=== PATIENT | female | born 1950 | race Caucasian/White ===

== ENCOUNTER → 2016-11-13 | Outpatient (CLI) | payer OTHER ==
[~2016-11-13] MED LIST: ADVIN10/60 INH; ASPI81TA28 PO; CHOL100010 PO; CLR10 PO; FLNIN/ NAE; LSN20 PO; OMEP20TA14 PO
[2016-11-13 13:35] LABS: ALT/SGPT 24 U/L (12-78); BLOOD UREA NITROGEN 12 mg/dl (7-18); BUN/CREATININE RATIO 12.8 (10-20); CALCIUM 9.2 mg/dl (8.5-10.1); CARBON DIOXIDE 26 mmol/L (21-32); CHLORIDE 107 mmol/L (98-107); CHOLESTEROL 232 mg/dl (0-200); CREATININE 0.94 mg/dl (0.60-1.20); GLUCOSE 98 mg/dl (70-99); POTASSIUM 4.2 mmol/L (3.5-5.1); SODIUM 140 mmol/L (136-145); TRIGLYCERIDES 91 mg/dl (0-150); VERY LOW DENSITY LIPOPROT CALC 18 mg/dl
[2016-11-13 13:38] LABS: ALB/GLOB RATIO 0.9 (0.9-2); ALKALINE PHOSPHATASE 85 U/L (45-117); AST/SGOT 16 U/L (15-37); CHOLESTEROL/HDL RATIO 3.3; HDL CHOLESTEROL 70 mg/dl; LDL CHOLESTEROL CALCULATED 144 mg/dl
== END | disposition home or self-care (01) ==
LOC: C.LABBC 08:25
PROVIDERS: ATTEND Family Medicine
DX: I10 Essential (primary) hypertension (principal); E78.00 Pure hypercholesterolemia, unspecified; E55.9 Vitamin D deficiency, unspecified

== ENCOUNTER → 2017-03-18 | Outpatient (CLI) | payer OTHER ==
--- NOTE | 2017-03-18 13:54 | MAMMOGRAPHY REPORT ---
BILATERAL DIGITAL SCREENING MAMMOGRAM WITH CAD: 03/18/2017 CLINICAL HISTORY: Routine screening. TECHNIQUE: Current study was also evaluated with a Computer Aided Detection (CAD) system. Bilateral CC and MLO views were obtained. COMPARISON: Comparison is made to exams dated: 03/16/2016 mammogram, 03/11/2015 mammogram, 03/07/2014 ana mogram, 02/26/2013 mammogram, 02/21/2012 mammogram, and 02/16/2011 mammogram - [facility]. BREAST COMPOSITION: There are scattered areas of fibroglandular density in both breasts. FINDINGS: No suspicious masses, calcifications, or areas of architectural distortion are noted in ei ther breast. There has been no significant interval change compared to prior exams. IMPRESSION: ACR BI-RADS CATEGORY 1: NEGATIVE There is no mammographic evidence of malignancy. A 1 year screening mammogram is recommended. The pa tient will receive written notification of the results. Approximately 10% of breast cancers are not detected with mammography. A negative mammographic report should not delay biopsy if a clinically suggestive mass is present. No Cantor M.D. ah/:03/18/2017 07:49:22 Substation Operator Apprentice: Payam Liu RT(R)(M), [facility] letter sent: Normal 1/2 BI-RADS Code: ACR BI-RADS Category 1: Negative
== END | disposition home or self-care (01) ==
LOC: C.MAMM 07:31
PROVIDERS: ATTEND Family Medicine
DX: Z12.31 Encounter for screening mammogram for malignant neoplasm of breast (principal)

== ENCOUNTER → 2017-11-08 | Outpatient (CLI) | payer OTHER ==
[2017-11-08 10:55] LABS: BASO % 0.3 %; BASO ABS # 0.02 K/uL (0-0.2); EOS % 2.6 %; EOS ABS # 0.16 K/uL (0-0.5); HEMATOCRIT 41.7 % (37-47); HEMOGLOBIN 14.3 g/dL (12.0-16.0); IG# 0.01 K/uL (0.00-0.02); LYMPH % 33.4 %; LYMPH ABS # 2.07 K/uL (1.2-3.4); MEAN CELL VOLUME 84.9 fL (80-100); MEAN CORPUSCULAR HEMOGLOBIN 29.1 pg (25-34); MEAN CORPUSCULAR HGB CONC 34.3 g/dl (32-36); MEAN PLATELET VOLUME 10.3 fL (7.4-10.4); MONO % 5.5 %; MONO ABS # 0.34 K/uL (0.11-0.59); PLATELET COUNT 302 K/uL (130-400); RED CELL DISTRIBUTION WIDTH CV 13.5 % (11.5-14.5); RED CELL DISTRIBUTION WIDTH SD 41.5 fL (36.4-46.3)
[2017-11-08 11:28] LABS: HEMOGLOBIN A1C 5.5 % (4.5-5.6)
[2017-11-08 14:03] LABS: ALBUMIN 3.8 gm/dl (3.4-5.0); BLOOD UREA NITROGEN 13 mg/dl (7-18); CALCIUM 9.4 mg/dl (8.5-10.1); CARBON DIOXIDE 26 mmol/L (21-32); CHOLESTEROL 230 mg/dl (0-200); CREATININE 0.84 mg/dl (0.60-1.20); GLUCOSE 94 mg/dl (70-99); POTASSIUM 3.7 mmol/L (3.5-5.1); SODIUM 137 mmol/L (136-145)
[2017-11-08 14:07] LABS: ALKALINE PHOSPHATASE 82 U/L (45-117); ALT/SGPT 24 U/L (12-78); AST/SGOT 16 U/L (15-37); LDL CHOLESTEROL CALCULATED 155 mg/dl; TOTAL PROTEIN 7.8 gm/dl (6.4-8.2)
== END | disposition home or self-care (01) ==
LOC: C.LABBC 09:04
PROVIDERS: ATTEND Physician Assistant Medical
DX: I10 Essential (primary) hypertension (principal); E78.00 Pure hypercholesterolemia, unspecified; E55.9 Vitamin D deficiency, unspecified; R73.03 Prediabetes

== ENCOUNTER → 2017-11-21 | Outpatient (CLI) | payer OTHER | END | disposition home or self-care (01) | LOC: C.MAMM 12:33 | PROVIDERS: ATTEND Physician Assistant Medical | DX: Z13.820 Encounter for screening for osteoporosis (principal) ==

== ENCOUNTER 2023-09-04 15:55 | Observation (INO) ==
--- NOTE | 2023-09-04 16:02 | ED Triage Note ---
Date of Service September 04, 2023 History of Present Illness This patient was briefly evaluated while in triage. An abbreviated physical exam was performed. This patient is a 73-year-old Female who presents to the ED for evaluation lipids, HTN, DM, bipolar was out walking dog with friends, and had an acute visual disturbance in the left eye "arc of bright light in lateral visual field" lasted 20 minutes noticed smaller defect in right eye no headache hx of cataract extraction, no hx of glaucoma Physical Exam GENERAL: NAD ENT: PERRLA, EOMI CARDIOVASCULAR: RRR RESPIRATORY: CTA Initial orders for labs and / or imaging were placed and patient was placed in the waiting area until a bed is available. Please see further documentation for the full ED course.
[2023-09-04 16:35] LABS: Basophils # (auto) 0.04 K/uL (0.00-0.20); Basophils % (auto) 0.6 %; Eosinophils # (auto) 0.23 K/uL (0.00-0.50); Eosinophils % (auto) 3.4 %; Hematocrit (blood only) 43.2 % (37.0-47.0); Hemoglobin 14.5 g/dl (12.0-16.0); Immature Granulocytes # (auto) 0.01 K/uL (0.01-0.20); Immature Granulocytes % (auto) 0.1 %; Lymphocytes # (auto) 2.66 K/uL (1.20-3.40); Lymphocytes % (auto) 39.3 %; Mean Corpuscular Hemoglobin 28.5 pg (25.0-34.0); Mean Corpuscular Hgb Conc 33.6 g/dL (32.0-36.0); Mean Platelet Volume 10.9 fL (9.4-12.4); Monocytes # (auto) 0.31 K/uL (0.11-0.59); Monocytes % (auto) 4.6 %; Neutrophils # (auto) 3.51 K/uL (1.40-6.50); Platelet Count 305 K/uL (130-400); RDW Coefficient of Variation 12.8 % (11.5-14.5); RDW Standard Deviation 39.7 fL (36.4-46.3); Red Blood Count 5.08 M/uL (4.20-5.40); White Blood Count 6.76 K/ul (4.8-10.8)
[2023-09-04 16:49] LABS: Albumin Globulin Ratio 1.3 (0.9-2); Albumin Level 4.4 gm/dl (3.4-5.0); BUN Creatinine Ratio 20.8 (10-20); Bilirubin,Total 0.4 mg/dl (0.2-1.0); Calcium 9.8 mg/dl (8.6-10.3); Creatinine Clr Calc Pharmacy 66.5 ml/min; Est GFR (Non-African American) 77.7 ml/min; Globulin 3.3 gm/dl (2.5-4.0); Potassium 3.3 mmol/L (3.5-5.1); Total Protein 7.7 gm/dl (6.0-8.3)
--- NOTE | 2023-09-04 16:49 | Emergency Department Note ---
Impression & Plan Transient vision disturbance of both eyes ED Provider Note Provider: Andrews Roque MD DATE OF SERVICE: 09/04/2023 CHIEF COMPLAINT: Visual disturbance HISTORY OF PRESENT ILLNESS: Patient is a 73-year-old female history of GERD, hypertension, hyperlipidemia, bipolar disorder presenting here today stating around 3 PM she had about 10 to 15-minute episode where she had some shimmering lines in the left visual jay of both eyes. Denies pain. Denies trauma. Denies syncope. Denies numbness or tingling or weakness otherwise. Denies speech issues. No history of similar. Denies any headache or history of migraines. Denies history of similar. Has had cataract surgery in the past but denies any similar issues to this. States it was a zigzag type line left lateral visual jay of both eyes. Stronger in the left but present on the right as well she reports. Has resolved. Came here for evaluation this evening. PAST MEDICAL HISTORY: As noted above MEDICATIONS: Reviewed home medications FMH: Mother with history of stroke SOCIAL HISTORY: PHYSICAL EXAM: GENERAL: alert and oriented in no acute distress on stretcher Head: normocephalic and atraumatic EYES: No injection, discharge or icterus. PERRL, EOMI. NECK: Trachea midline. Supple. ENT: Mucous membranes pink and moist. LUNGS: Airway patent. No retractions. Breath sounds clear with good air entry bilaterally. HEART: Regular rate and rhythm. No chest wall tenderness SKIN: Acyanotic, warm, dry, without rashes EXTREMITIES: Without swelling, tenderness or deformity NEUROLOGICAL: No focal deficits. No aphasia. No facial droop or slurred speech. Normal strength and tone in the extremities. Sensation to gross touch normal. Ambulatory. EK bpm normal sinus rhythm. No PVC or PAC. No acute ST segment elevation or depression with QTc of 404 Patient's laboratory studies and imaging reviewed. Differential includes Conjunctivitis, trauma, corneal abrasion, hyphema, glaucoma, iritis, corneal ulcer, dendrite, CRAO, CRVO, vitreous detachment, retinal detachment, stroke, seizure, complex migraine, SLICE CUTTING MACHINE OPERATOR infection, as well as other pathologies. IMPRESSION/MEDICAL DECISION MAKING: Bilateral nature and now resolution does not seem to get of a primary ophthalmologic etiology. Now resolved. No other associate neurological symptoms. No trauma. No acute visual issues at this time. Zigzag nature without flashing or significant pain bilaterally does not seem consistent again with glaucoma, iritis, eye infection, or retinal detachment. Back at baseline now. Basic blood work and EKG here without acute findings. Discussed with the patient given this odd finding that could potentially localize to the right posterior occipital region did complete an MRI of the brain without finding per the radiologist report. Discussed with her. This could possibly represent a brain TIA but feel this is less likely. Unclear exact etiology. At this time she is back at baseline. Discussed with the patient. Discussed we could observe her for this but she is back at baseline now. In shared decision-making she would prefer to go home which I do not feel is unreasonable. Has not tolerated statins in the past but will start on a low-dose aspirin pending outpatient follow-up. Discussed being in contact with her primary doctor as well as environmental engineering manager group closely. However, just prior to DC had reccurance of symptoms now more involving R visual jay. Upon reassessment symptoms resolving lasting ~10 minutes. Given recurrence discussed observation over night. DIAGNOSIS: Transient visual disturbance DISPOSITION: Initially thoughts for discharge but then with recurrence of visual symptoms discussed with her and hospitalist contacted for observation. Past Med/Surg History Medical History Allergic rhinitis, unspecified Anxiety Asthma Bipolar disorder GERD (gastroesophageal reflux disease) History of colon polyps Hyperlipidemia Hypertension Macular degeneration Osteoarthritis Vitamin D insufficiency Surgical History History of cataract surgery History of colonoscopy History of D&C History of tooth extraction Family History Daughter Breast cancer Mother Graves disease Hypertension Stroke Father Prostate cancer Dyslipidemia Heart disease Myocardial infarction Hypertension Grandfather (Maternal) Alcoholic cirrhosis Grandfather (Paternal) Heart disease Lung cancer Grandmother (Maternal) Ischemic stroke Other No family history of adverse response to anesthesia Denies family history of Ovarian cancer Diabetes Colorectal cancer Social History Smoking Status: Never smoker Second Hand Exposure: No ( A CHILD); Do You Dip or Chew Tobacco: No; Hx Alcohol Use: No Hx Substance Use: No Preferred Language: Maori Communication Ability: Effective Visual Impairment: Limited Hearing Ability: Normal Utility Mechanic Required: No Beliefs That Will Affect Care: None marital status: Current Living Situation: Spouse Current Living Situation Comment: 1 dog current occupational status: employed current occupation: [employer], [employer], and [employer] How many Children do You have: 1 Feels Safe at Home: Yes Childhood Exposure to Second-Hand Smoke: Yes caffeine: Yes Dental Care, Regularly: Yes Physical Activity Frequency: Daily Seatbelt Use: always Sunscreen Use: Yes Assistive Devices: Glasses Allergies Allergies Allergy/AdvReac Type Severity Reaction Status Date / Time atorvastatin Allergy Intermediate Confusion Verified 06/30/23 13:17 nickel Allergy Mild ITCHING Verified 06/30/23 13:17 Penicillins Allergy Mild RASH Verified 06/30/23 13:17 cyclobenzaprine AdvReac Mild EMOTION Verified 06/30/23 13:17 UPSET, CRYING W/O REASON rosuvastatin AdvReac Mild Confusion Verified 06/30/23 13:17 crestor AdvReac Mild Fatigued Uncoded 06/30/23 13:34 Home Meds Home Medications Medication Instructions Recorded Confirmed fluticasone propionate 50 1 sprays intranasal QAM 03/31/20 09/04/23 mcg/actuation nasal spray,suspension (Flonase Allergy Relief) cholecalciferol (vitamin D3) 50 50 mcg PO QPM 02/06/21 09/04/23 mcg (2,000 unit) capsule amlodipine 5 mg tablet 5 mg PO QPM 09/04/23 09/04/23 Previous Rx's Medication Instructions Recorded loratadine 10 mg tablet (Claritin) 10 mg PO DAILY #30 tabs 09/18/19 omeprazole magnesium 20 mg 20 mg PO DAILY #30 tabs 09/18/19 tablet,delayed release (Prilosec OTC) lisinopril 20 mg tablet 20 mg PO BID #180 tabs 06/30/23 Results & Data (ED) Vital Signs Vital Signs - 24 hr 09/04/23 15:58 09/04/23 18:36 09/04/23 20:22 Temperature 36.6 C Temperature Source Temporal Artery Scan Pulse Rate 90 Pulse Rate [Right Radial] 76 60 Pulse Rhythm [Right Radial] Regular Pulse Strength [Right Radial] Normal Respiratory Rate 18 18 18 Respiratory Effort / Characteristics Non-Labored Non-Labored Spontaneous Respiratory Depth Normal Normal Respiratory Pattern Regular Regular Blood Pressure 167/80 H Blood Pressure [Right Arm] 159/98 H 121/58 L Blood Pressure Mean 109 Blood Pressure Mean [Right Arm] 118 79 Pulse Oximetry 99 98 92 Oxygen Delivery Method Room Air Room Air Room Air Sepsis Recent Fever Within 48 Hours No Sepsis New/Unexplained Change in Mental Status N/A Sepsis Action Taken by Nursing No Action Required Laboratory Data 09/04/23 16:15 09/04/23 16:15 Lab Results 09/04/23 Range/Units 16:15 WBC 6.76 (4.8-10.8) K/ul RBC 5.08 (4.20-5.40) M/uL Hgb 14.5 (12.0-16.0) g/dl Hct 43.2 (37.0-47.0) % MCV 85.0 (80.0-100.0) fL MCH 28.5 (25.0-34.0) pg MCHC 33.6 (32.0-36.0) g/dL RDW Std Deviation 39.7 (36.4-46.3) fL RDW Coeff of Olvin 12.8 (11.5-14.5) % Plt Count 305 (130-400) K/uL MPV 10.9 (9.4-12.4) fL Immature Gran % (Auto) 0.1 % Neut % (Auto) 52.0 % Lymph % (Auto) 39.3 % [place] % (Auto) 4.6 % Eos % (Auto) 3.4 % Baso % (Auto) 0.6 % Neut # (Auto) 3.51 (1.40-6.50) K/uL Lymph # (Auto) 2.66 (1.20-3.40) K/uL [place] # (Auto) 0.31 (0.11-0.59) K/uL Eos # (Auto) 0.23 (0.00-0.50) K/uL Baso # (Auto) 0.04 (0.00-0.20) K/uL Immature Gran # (Auto) 0.01 (0.01-0.20) K/uL Sodium 140 (136-145) mmol/L Potassium 3.3 L (3.5-5.1) mmol/L Chloride 105 (98-107) mmol/L Carbon Dioxide 29 (21-32) mmol/L Anion Gap 6 (3-11) BUN 16 (6-23) mg/dl Creatinine 0.77 (0.6-1.2) mg/dl Est Cr Clr Drug Dosing 66.5 ml/min Est GFR ( Amer) 90.0 ml/min Est GFR (Non-Af Amer) 77.7 ml/min BUN/Creatinine Ratio 20.8 H (10-20) Glucose 100 H (70-99(Fasting)) mg/dl Calcium 9.8 (8.6-10.3) mg/dl Magnesium 2.0 (1.7-2.4) mg/dl Total Bilirubin 0.4 (0.2-1.0) mg/dl AST 17 (13-39) U/L ALT 16 (7-52) U/L Alkaline Phosphatase 81 (34-104) U/L Total Protein 7.7 (6.0-8.3) gm/dl Albumin 4.4 (3.4-5.0) gm/dl Globulin 3.3 (2.5-4.0) gm/dl Albumin/Globulin Ratio 1.3 (0.9-2) Administered Medications Discontinued Medications Aspirin (Aspirin 81 Mg Chew) 81 mg PO NOW STA Stop: 09/04/23 18:29 Last Admin: 09/04/23 18:36 Dose: 81 mg Documented By: CHRIS Ioversol (Optiray 320 125ml) 118 ml IV ONCE ONE Stop: 09/04/23 19:51 Last Admin: 09/04/23 19:52 Dose: 118 ml Documented By: SAVANNA Potassium Chloride (Potassium Chloride Crtab 20 Meq Tabcr) 20 meq PO ONE ONE Stop: 09/04/23 20:35 Last Admin: 09/04/23 21:44 Dose: 20 meq Documented By: ANGELA Imaging Data Radiologist's Impression: Brain MRI 09/04/23 16:59 MR brain wo con CLINICAL HISTORY: Left visual field changes TECHNIQUE: Multiplanar and multisequence MR images of the brain were obtained without intravenous contrast. Comparison: None available at the time of this dictation. FINDINGS: No abnormal restricted diffusion is identified. Foci of T2 and FLAIR hyperintensity are noted in the paraventricular areas consistent with chronic small vessel ischemic disease. The ventricular system is normal in appearance. No mass is seen. There is no mass effect or midline shift. There is no evidence of acute intraparenchymal hemorrhage. No extra axial fluid collections are seen. The corpus callosum, pituitary gland, and cerebellar tonsils appear grossly unremarkable. Flow voids of the major intracranial arterial vessels are identified. The imaged portions of the paranasal sinuses, mastoid air cells, and orbits are unremarkable. IMPRESSION: No acute abnormality and in particular no evidence of acute infarct. ACT 112: Negative or not required by law. Electronically signed by: Santi Pascual M.D. 09/04/2023 6:01 PM Head CTA 09/04/23 19:23 Exam(s): CTA HEAD With Contrast IV Amt: 117 ml optiray 320 EXAM: CT Angiography Head With Intravenous Contrast CLINICAL HISTORY: Reason for exam: visual changes. TECHNIQUE: Axial computed tomographic angiography images of the head with intravenous contrast. CTDI is 12.21 mGy and DLP is 430.8 mGy-cm. Automated exposure control was utilized for the study. A dose lowering technique was utilized adhering to the principles of ALARA. MIP reconstructed images were created and reviewed. CONTRAST: Patient received 117 ml optiray 320 of IV contrast COMPARISON: None. FINDINGS: Right internal carotid artery: Minimal atherosclerotic disease involving the cavernous portion of the right internal carotid artery with no stenosis. No aneurysm. Right anterior cerebral artery: Unremarkable. No occlusion or significant stenosis. No aneurysm. Right middle cerebral artery: Unremarkable. No occlusion or significant stenosis. No aneurysm. Right posterior cerebral artery: Unremarkable. No occlusion or significant stenosis. No aneurysm. Right vertebral artery: Unremarkable as visualized. Left internal carotid artery: Minimal atherosclerotic disease involving the cavernous portion of the left internal carotid artery with no stenosis. No aneurysm. Left anterior cerebral artery: Unremarkable. No occlusion or significant stenosis. No aneurysm. Left middle cerebral artery: Unremarkable. No occlusion or significant stenosis. No aneurysm. Left posterior cerebral artery: Unremarkable. No occlusion or significant stenosis. No aneurysm. Left vertebral artery: Unremarkable as visualized. Basilar artery: Unremarkable. No occlusion or significant stenosis. No aneurysm. IMPRESSION: No stenosis, occlusion or aneurysmal dilatation involving the quechan of [place]. Electronically signed by: Isabela Novoa MD 09/04/23 20:38 PM Neck CTA 09/04/23 19:23 Exam(s): CTA NECK With Contrast IV Amt: 117 ml optiray 320 EXAM: CT Angiography Neck With Intravenous Contrast CLINICAL HISTORY: Reason for exam: visual changes. TECHNIQUE: Routine carotid CT angiography protocol was performed with intravenous contrast. NASCET criteria using the distal ICAs for comparison were used for evaluation of stenoses. CTDI is 12.21 mGy and DLP is 430.8 mGy-cm. Automated exposure control was utilized for the study. A dose lowering technique was utilized adhering to the principles of ALARA. MIP reconstructed images were created and reviewed. CONTRAST: Patient received 117 ml optiray 320 of IV contrast COMPARISON: None. FINDINGS: VASCULATURE: Right common carotid artery: Unremarkable. No occlusion or significant stenosis. No dissection. Right internal carotid artery: Unremarkable. Extracranial segment is patent with no occlusion or significant stenosis. No dissection. Right external carotid artery: Unremarkable. No occlusion. Right vertebral artery: Unremarkable. No occlusion or significant stenosis. No dissection. Left common carotid artery: Unremarkable. No occlusion or significant stenosis. No dissection. Left internal carotid artery: Unremarkable. Extracranial segment is patent with no occlusion or significant stenosis. No dissection. Left external carotid artery: Unremarkable. No occlusion. Left vertebral artery: Unremarkable. No occlusion or significant stenosis. No dissection. Aorta: Mild atherosclerotic disease of aorta with no aneurysm or dissection. Mild atherosclerotic disease with the great vessels. NECK: Bones/joints: Unremarkable. No acute fracture. Soft tissues: Unremarkable. Thyroid: Multiple hypoattenuating nodules seen within the right thyroid lobe, largest measuring 2 cm. Lung apices: Clear. CAROTID STENOSIS REFERENCE USING NASCET CRITERIA: % ICA stenosis = (1 - narrowest ICA diameter/diameter of distal cervical ICA) x 100. Mild - <50% stenosis. Moderate - 50-69% stenosis. Severe - 70-94% stenosis. Near occlusion - 95-99% stenosis. Occluded - 100% stenosis. IMPRESSION: No stenosis, occlusion or dissection involving the bilateral carotid and vertebral arteries. Electronically signed by: Isabela Novoa MD 09/04/23 20:36 PM Discharge Plan Visit Data Chief Complaint: Visual Disturbance Stated Complaint: VISUAL DISTURBANCE ED Provider: Andrews Roque Discharge Problem: Transient vision disturbance of both eyes Patient Disposition: Admitted As Inpatient Condition: Good Discharge Instructions Interventions: ED Discharge Assessment Last Done: 09/04/23 22:09
--- NOTE | 2023-09-04 18:02 | Magnetic Resonance Report ---
MR brain wo con CLINICAL HISTORY: Left visual field changes TECHNIQUE: Multiplanar and multisequence MR images of the brain were obtained without intravenous con trast. Comparison: None available at the time of this dictation. FINDINGS: No abnormal restricted diffusion is identified. Foci of T2 and FLAIR hyperintensity are noted in the paraventricular areas consistent with chronic small vessel ischemic disease. The ventricular system i s normal in appearance. No mass is seen. There is no mass effect or midline shift. There is no eviden ce of acute intraparenchymal hemorrhage. No extra axial fluid collections are seen. The corpus callos um, pituitary gland, and cerebellar tonsils appear grossly unremarkable. Flow voids of the major intracranial arterial vessels are identified. The imaged portions of the para nasal sinuses, mastoid air cells, and orbits are unremarkable. IMPRESSION: No acute abnormality and in particular no evidence of acute infarct. ACT 112: Negative or not required by law. Electronically signed by: Santi Pascual M.D. 09/04/2023 6:01 PM
[2023-09-04] MEDS ORDERED: ASPIRIN 81 MG CHEW PO STA (18:28)
[2023-09-04] MEDS ORDERED: OPTIRAY 320 125ml IV ONE (19:50)
--- NOTE | 2023-09-04 20:13 | History & Physical Report ---
Date of Service September 04, 2023 Assessment & Plan (1) Transient vision disturbance of both eyes: Plan: 2 episodes of transient b/l visual disturbances Episodes last 10 to 15 minutes, and she characterizes them as "wavy vision" like a kaleidoscope, or rainbow No slurred speech, facial droop, ocular pain, BYERS, dizziness, lightheadedness, ambulatory dysfunction, one-sided deficits No prior history of episodes like this one MRI brain revealed NAF CTA neck revealed no stenosis, occlusion, or dissection involving the bilateral carotid and vertebral arteries CT head revealed no stenosis, occlusion, or aneurysms in the [place] of [place] Last A1c 5.7% on 08/19/23 Patient passed dysphagia screen in the ED, and is okay to eat Clinically, suspect ocular migraines; recommend outpatient follow-up with PCP Juliocesar FARIAS, BMP (2) Hyperlipidemia: Plan: Patient is no longer taking pravastatin Last lipid panel on 08/19/2023 revealed cholesterol 232, LDL 57, VLDL 21, HDL 54 No need to repeat lipid panel at this time (3) Hypertension: Plan: Hold amlodipine Continue lisinopril (4) Bipolar disorder: Plan: Patient reports she has not been taking her lamotrigine for the past month, after agreeing to discontinue it with her PCP Lamotrigine level pending (5) Chronic GERD: Plan: Continue omeprazole, or pantoprazole equivalent (6) Hypokalemia: Plan: Mild hypokalemia at 3.3 on arrival Potassium chloride 20mEq given in the ED Recheck morning BMP Plan Disposition: Obs - Admit to MedSurg telemetry DNR/DNI Regular diet VTE PPx: TEDs History of Present Illness Chief Complaint: Visual disturbance Primary Care Provider: Tarik Benson DO Johanna is a 73-year-old female with PMH of GERD, hyperlipidemia, HTN, bipolar disorder, and arthritis. She presented for 15-minute episode of transient vision disturbance in both eyes at 1500 on 09/04. Patient was out hiking with her , friends, and dog when she developed an episode of bilateral visual changes which she described as "wavy vision, like rainbows"; kaleidoscope in nature. At first she thought she was having reflections from her glasses. Patient wears prescription glasses at baseline. Her last eye appointment was 1 month ago and she reported no issues at the time. When she was nearing ED discharge, she experienced another 5 to 10 minutes of visual changes. She denies eye pain. She reports that she took all of her morning medications as per usual. In regard to recent medication changes, she reports that she stopped taking lamotrigine at the beginning of July after agreeing with her PCP that her mood swings were well controlled; previously on it for 4 years. She is also not currently taking her statin. She endorses a hx of vertigo, but says that pa st vertigo episodes did not feel like this one; she does not take any medications for vertigo. Hx of cataract surgery in 2003, with no residual issues since. Patient states she was well-hydrated at the time of the episodes. She denies alcohol, tobacco, vaping, and recreational drug use. No prior episodes of transient visual changes such as this. Patient is mildly hypertensive at 159/98 at time of arrival; vitals otherwise stable. ED course: Aspirin 81 mg ROS: Patient endorses 2 episodes of transient visual disturbance, cold intolerance, changes to taste/smell, and numbness and tingling in the arms (which she attributes to knitting too much) Patient denies fever, headache, dizziness, lightheadedness, chills, fainting, ambulatory dysfunction, dysphagia, slurred speech, facial droop, recent head trauma, changes to hearing, loss of vision, ocular pain, photophobia, diplopia, difficulty swallowing, neck pain, chest pain, SOB, abdominal pain, N/V/D, burning with urination, blood in the urine or stool, dysuria, numbness or tingling going down the legs. No PMH of [place], CVA, DVT/PE, cancer, diabetes Allergies Allergy/AdvReac Type Severity Reaction Status Date / Time atorvastatin Allergy Intermediate Confusion Verified 06/30/23 13:17 nickel Allergy Mild ITCHING Verified 06/30/23 13:17 Penicillins Allergy Mild RASH Verified 06/30/23 13:17 cyclobenzaprine AdvReac Mild EMOTION Verified 06/30/23 13:17 UPSET, CRYING W/O REASON rosuvastatin AdvReac Mild Confusion Verified 06/30/23 13:17 crestor AdvReac Mild Fatigued Uncoded 06/30/23 13:34 Home Medications Medication Instructions Recorded Confirmed Type loratadine 10 mg tablet (Claritin) 10 mg PO DAILY #30 tabs 09/18/19 09/04/23 Rx omeprazole magnesium 20 mg 20 mg PO DAILY #30 tabs 09/18/19 09/04/23 Rx tablet,delayed release (Prilosec OTC) fluticasone propionate 50 1 sprays intranasal QAM 03/31/20 09/04/23 History mcg/actuation nasal spray,suspension (Flonase Allergy Relief) cholecalciferol (vitamin D3) 50 50 mcg PO QPM 02/06/21 09/04/23 History mcg (2,000 unit) capsule lisinopril 20 mg tablet 20 mg PO BID #180 tabs 06/30/23 09/04/23 Rx amlodipine 5 mg tablet 5 mg PO QPM 09/04/23 09/04/23 History Past Med/Surg History Medical History History of colon polyps Osteoarthritis GERD (gastroesophageal reflux disease) Macular degeneration Anxiety Asthma LAST USED RESCUE INHALER>BEEN YEARS Bipolar disorder Vitamin D insufficiency Hypertension Hyperlipidemia Allergic rhinitis, unspecified Surgical History History of colonoscopy 02/2021 Repeat 5 yrs History of tooth extraction History of cataract surgery RT/LEFT History of D&C Family History (Updated 09/05/23 @ 10:06 by Bg Geller MD) Daughter Breast cancer Mother , age 81 Graves disease Hypertension Stroke Father , age 81 Prostate cancer Dyslipidemia Heart disease Myocardial infarction Hypertension Grandfather (Maternal) Alcoholic cirrhosis Grandfather (Paternal) Heart disease Lung cancer Grandmother (Maternal) Ischemic stroke Other No family history of adverse response to anesthesia Denies family history of Ovarian cancer Diabetes Colorectal cancer Social History Smoking Status: Never smoker Second Hand Exposure: No; Do You Dip or Chew Tobacco: No; Hx Alcohol Use: No Hx Substance Use: No Preferred Language: [place] Communication Ability: Effective Visual Impairment: Limited Hearing Ability: Normal Green Chainer Required: No Beliefs That Will Affect Care: None marital status: Current Living Situation: Spouse Current Living Situation Comment: 1 dog current occupational status: employed current occupation: [employer], [employer], and [employer] How many Children do You have: 1 Feels Safe at Home: Yes Childhood Exposure to Second-Hand Smoke: Yes caffeine: Yes Dental Care, Regularly: Yes Physical Activity Frequency: Daily Seatbelt Use: always Sunscreen Use: Yes Assistive Devices: Glasses Review of Systems Review of Systems: See HPI above Physical Exam Physical Exam: General: no acute distress; pleasant affect; non-toxic appearing; well- nourished; cooperative HEENT: normocephalic, atraumatic; no scleral icterus; PERRLA w/ EOMs intact; moist mucus membrane; hearing grossly intact B/L assessed via finger rub test; patient demonstrates the ability to protrude and wiggle her tongue; patient demonstrates ability to smile, frown, and lift eyebrows; no facial droop Neck: supple; no JVD; no lymphadenopathy; trachea midline; no pain with shrugging/turning head against resistance Skin: warm, dry without signs of tenting; no cyanosis; no rashes, bruising, lesions, or erythema noted CV: chest wall NTP; RRR; S1/S2 normal; no murmurs/rubs/gallops; pulses intact and symmetric at radial, DP, and PT Lungs: no acute respiratory distress; symmetrical chest wall expansion; clear breath sounds across all lung jay w/o adventitious sounds; no wheezing ABD: Soft, NTP; BS present; no rebound/guarding; no ascites; no distention; no tick/rashes MSK: no tics or fasciculations; no edema noted in the LEs b/l; high court justice strength +5/5 B/L; full active ROM of UEs and LEs; +5/5 LE strength with plantarflexion, dorsiflexion, bending at the hips Neuro: A&Ox3; pleasant mood and affect; fluent speech, without slurring; CN2-12 intact; no focal deficits; sensation grossly intact in the face measured at 3 dermatomes, as well as the UEs / LEs bilaterally Results & Data Results & Data Vital Signs (Past 12 Hours) Vital Signs Temp Pulse Pulse Resp BP BP Pulse Ox 09/04/23 18:36 76 18 159/98 H 98 09/04/23 15:58 36.6 C 90 18 167/80 H 99 O2 Del Method 09/04/23 18:36 Room Air 09/04/23 15:58 Room Air Laboratory Results Abnormal lab results 09/04/23 Range/Units 16:15 Potassium 3.3 L (3.5-5.1) mmol/L BUN/Creatinine Ratio 20.8 H (10-20) Glucose 100 H (70-99(Fasting)) mg/dl Code Status & VTE Plan Code Status DNR/DNI VTE Prophylaxis Plan VTE Prophylaxis will be ordered: Yes Supervising Physician Co-Signing Physician Notes Attending addendum: I have physically seen this patient, have supervised the LEAH's activities, and agree with the H&P unless as otherwise noted. Assessment and Plan: Transient visual changes/photopsias of both eyes- Reports 2 episodes lasting 10 to 15 minutes Classic zigzag photopsias suggestive of ocular migraine MRI brain showed no acute findings Follow-up CTA head and neck showed no concerning findings The patient will be admitted to telemetry for serial cardiac enzymes, serial EKG's, cardiac rhythm monitoring and a 2-D echocardiogram with Dopplers. Hypertension- Continuing lisinopril, temporarily holding amlodipine Bipolar disorder- Has been on lamotrigine, which reportedly was discontinued Remaining orders and notations as noted PG Care Time/CCT Total # of Minutes Spent Total Time Spent with Patient: Total time spent is greater than 50% in coordination of care (as documented) at patient's floor/unit and/or counseling patient: Coding [place] [address] INT INP/OBS CARE 2/55MIN Patient Type Established Medical Decision Making Low Complexity Diagnoses Transient vision disturbance of both eyes H53.9 Hyperlipidemia E78.5 Hypertension I10 Bipolar disorder F31.9 Chronic GERD K21.9 Hypokalemia E87.6
[2023-09-04] MEDS ORDERED: POTASSIUM CHLORIDE CRTAB 20 MEQ TABCR PO ONE (20:34)
--- NOTE | 2023-09-04 20:37 | CT Scan Report ---
Exam(s): CTA NECK With Contrast IV Amt: 117 ml optiray 320 EXAM: CT Angiography Neck With Intravenous Contrast CLINICAL HISTORY: Reason for exam: visual changes. TECHNIQUE: Routine carotid CT angiography protocol was performed with intravenous contrast. NASCET criteria using the distal ICAs for comparison were used for evaluation of stenoses. CTDI is 12.21 mGy and DLP is 430.8 mGy-cm. Automated exposure control was utilized for the study. A dose lowering technique was utilized adhering to the principles of ALARA. MIP reconstructed images were created and reviewed. CONTRAST: Patient received 117 ml optiray 320 of IV contrast COMPARISON: None. FINDINGS: VASCULATURE: Right common carotid artery: Unremarkable. No occlusion or significant stenosis. No dissection. Right internal carotid artery: Unremarkable. Extracranial segment is patent with no occlusion or significant stenosis. No dissection. Right external carotid artery: Unremarkable. No occlusion. Right vertebral artery: Unremarkable. No occlusion or significant stenosis. No dissection. Left common carotid artery: Unremarkable. No occlusion or significant stenosis. No dissection. Left internal carotid artery: Unremarkable. Extracranial segment is patent with no occlusion or significant stenosis. No dissection. Left external carotid artery: Unremarkable. No occlusion. Left vertebral artery: Unremarkable. No occlusion or significant stenosis. No dissection. Aorta: Mild atherosclerotic disease of aorta with no aneurysm or dissection. Mild atherosclerotic disease with the great vessels. NECK: Bones/joints: Unremarkable. No acute fracture. Soft tissues: Unremarkable. Thyroid: Multiple hypoattenuating nodules seen within the right thyroid lobe, largest measuring 2 cm. Lung apices: Clear. CAROTID STENOSIS REFERENCE USING NASCET CRITERIA: % ICA stenosis = (1 - narrowest ICA diameter/diameter of distal cervical ICA) x 100. Mild - <50% stenosis. Moderate - 50-69% stenosis. Severe - 70-94% stenosis. Near occlusion - 95-99% stenosis. Occluded - 100% stenosis. IMPRESSION: No stenosis, occlusion or dissection involving the bilateral carotid and vertebral arteries. Electronically signed by: Isabela Novoa MD 09/04/23 20:36 PM
--- NOTE | 2023-09-04 20:38 | CT Scan Report ---
Exam(s): CTA HEAD With Contrast IV Amt: 117 ml optiray 320 EXAM: CT Angiography Head With Intravenous Contrast CLINICAL HISTORY: Reason for exam: visual changes. TECHNIQUE: Axial computed tomographic angiography images of the head with intravenous contrast. CTDI is 12.21 mGy and DLP is 430.8 mGy-cm. Automated exposure control was utilized for the study. A dose lowering technique was utilized adhering to the principles of ALARA. MIP reconstructed images were created and reviewed. CONTRAST: Patient received 117 ml optiray 320 of IV contrast COMPARISON: None. FINDINGS: Right internal carotid artery: Minimal atherosclerotic disease involving the cavernous portion of the right internal carotid artery with no stenosis. No aneurysm. Right anterior cerebral artery: Unremarkable. No occlusion or significant stenosis. No aneurysm. Right middle cerebral artery: Unremarkable. No occlusion or significant stenosis. No aneurysm. Right posterior cerebral artery: Unremarkable. No occlusion or significant stenosis. No aneurysm. Right vertebral artery: Unremarkable as visualized. Left internal carotid artery: Minimal atherosclerotic disease involving the cavernous portion of the left internal carotid artery with no stenosis. No aneurysm. Left anterior cerebral artery: Unremarkable. No occlusion or significant stenosis. No aneurysm. Left middle cerebral artery: Unremarkable. No occlusion or significant stenosis. No aneurysm. Left posterior cerebral artery: Unremarkable. No occlusion or significant stenosis. No aneurysm. Left vertebral artery: Unremarkable as visualized. Basilar artery: Unremarkable. No occlusion or significant stenosis. No aneurysm. IMPRESSION: No stenosis, occlusion or aneurysmal dilatation involving the [place] of [place]. Electronically signed by: Isabela Novoa MD 09/04/23 20:38 PM
[2023-09-04] MEDS ORDERED: ACETAMINOPHEN 325 MG TAB PO PRN (22:11)
[2023-09-05] MEDS: lisinopril 20 MG TAB PO SCH ×2 (00:40→07:46)
[2023-09-05 04:27] LABS: Basophils # (auto) 0.04 K/uL (0.00-0.20); Basophils % (auto) 0.6 %; Eosinophils # (auto) 0.19 K/uL (0.00-0.50); Eosinophils % (auto) 2.6 %; Hematocrit (blood only) 39.4 % (37.0-47.0); Hemoglobin 13.3 g/dl (12.0-16.0); Immature Granulocytes # (auto) 0.02 K/uL (0.01-0.20); Immature Granulocytes % (auto) 0.3 %; Lymphocytes # (auto) 2.62 K/uL (1.20-3.40); Lymphocytes % (auto) 36.2 %; Mean Corpuscular Hemoglobin 28.4 pg (25.0-34.0); Mean Corpuscular Hgb Conc 33.8 g/dL (32.0-36.0); Mean Corpuscular Volume 84.2 fL (80.0-100.0); Mean Platelet Volume 11.1 fL (9.4-12.4); Monocytes # (auto) 0.58 K/uL (0.11-0.59); Neutrophils # (auto) 3.79 K/uL (1.40-6.50); Neutrophils % (auto) 52.3 %; Platelet Count 278 K/uL (130-400); RDW Coefficient of Variation 12.9 % (11.5-14.5); RDW Standard Deviation 39.8 fL (36.4-46.3); Red Blood Count 4.68 M/uL (4.20-5.40); White Blood Count 7.24 K/ul (4.8-10.8)
[2023-09-05 04:45] LABS: BUN Creatinine Ratio 15.5 (10-20); Calcium 9.7 mg/dl (8.6-10.3); Creatinine Clr Calc Pharmacy 60.9 ml/min; Est GFR (Non-African American) 69.9 ml/min; Potassium 4.4 mmol/L (3.5-5.1)
[2023-09-05] MEDS ORDERED: LORATADINE 10 MG TAB PO SCH (09:00)
[2023-09-05] MEDS ORDERED: PANTOprazole 40 MG TAB PO SCH (09:00)
--- NOTE | 2023-09-05 10:15 | Neurology Consultation ---
Date of Consultation September 05, 2023 Assessment & Plan (1) Transient vision disturbance of both eyes: (2) Hypertension: (3) Bipolar disorder: Plan Patient had 2 episodes September 04 of brief (15 minutes, and then 5 minutes) visual obscurations consisting of arc like flashing and shimmering colorful lights off to the left in both eyes. She had no other symptoms and currently has been asymptomatic since yesterday. On exam she has no focal findings, meningeal signs, or encephalopathy. CT angiography of the head neck and MRI of the brain were all unremarkable and there is no evidence of stroke or vascular anomalies. She does have a history of hypertension, borderline diabetes, and dyslipidemia. Typically, for these kinds of issues high blood pressure is a triggering factor. Overall, I believe this was vasospasm (migrainous) in origin. Although she does not have a history of migraines transient episodes of vasospasm or common. She is a history of bipolar disorder which is improved and stable off medication. Recommendations: 1. Consider ESR, TSH, B12, Lyme antibody titer, and TRAM. 2. I see no need for additional neurologic testing or treatment at this time. 3. Control blood pressure and follow-up with PCP. Overall, I spent a total of 60 minutes with this case including review of records, review of MRI films, direct evaluation the patient at bedside, report generation, and discussion of the case with the patient and RN at bedside and Dr. Baez, including differential diagnosis and treatment options. History of Present Illness Reason for Consultation: Patient is a 73-year-old who I was asked to see the request of Dr. Baez, for neurologic evaluation regarding transient visual issues Requesting Physician: Dr. Baez Attending Physician: Luke Baez MD History of Present Illness This patient has a history of hypertension, borderline diabetes, dyslipidemia, and bipolar disorder. She is been followed by Darya Damian at [place] for her bipolar disorder and has been doing well. In August 01 she got off lamotrigine altogether. The patient has no history of migraine headaches, seizure disorder, head trauma, or other neurologic issue. The patient was walking around 3:00 p.m. on September 04 when she had the sudden onset of arc like shimmering (some zigzag) colorful lights in the periphery to the left of each eye left eye greater than right eye. She covered 1 eye and then the other and determined that the left was more prominent than the right and they both had the abnormalities off to the left. This episode of colorful lights lasted about 15 minutes and then resolved. She had no headache before, during, or after. General eye pain, vision loss, or double vision. There were no weakness or numbness, speech or mentation problems. She went to the emergency room, arriving at 3:58 p.m. with a temperature 36.6, pulse 90 and regular, respiratory rate 18, blood pressure 167/80, O2 saturation 99%. Her neurologic examination was unremarkable apparently with no focal findings, meningeal signs, or encephalopathy. CBC and Chem profile were largely unremarkable. CT angiography of the head neck was normal with no vascular anomalies or stenoses. MRI of the brain without contrast showed no acute changes including no infarct are no other abnormalities. I reviewed these films. In the ER she had 1 further episode lasting 5 minutes with no other symptoms again. The patient has seen the eye doctor a month ago and had a normal exam. She does have some dry eyes and is post cataract surgery. She is minimal macular degeneration. She is had no further episodes and is feeling well. Blood pressure this morning was 157/81 and laboratory studies were unremarkable including CBC and Chem profile. Allergies Allergy/AdvReac Type Severity Reaction Status Date / Time atorvastatin Allergy Intermediate Confusion Verified 06/30/23 13:17 nickel Allergy Mild ITCHING Verified 06/30/23 13:17 Penicillins Allergy Mild RASH Verified 06/30/23 13:17 cyclobenzaprine AdvReac Mild EMOTION Verified 06/30/23 13:17 UPSET, CRYING W/O REASON rosuvastatin AdvReac Mild Confusion Verified 06/30/23 13:17 crestor AdvReac Mild Fatigued Uncoded 06/30/23 13:34 Home Medications Medication Instructions Recorded Confirmed Type loratadine 10 mg tablet (Claritin) 10 mg PO DAILY #30 tabs 09/18/19 09/04/23 Rx omeprazole magnesium 20 mg 20 mg PO DAILY #30 tabs 09/18/19 09/04/23 Rx tablet,delayed release (Prilosec OTC) fluticasone propionate 50 1 sprays intranasal QAM 03/31/20 09/04/23 History mcg/actuation nasal spray,suspension (Flonase Allergy Relief) cholecalciferol (vitamin D3) 50 50 mcg PO QPM 02/06/21 09/04/23 History mcg (2,000 unit) capsule lisinopril 20 mg tablet 20 mg PO BID #180 tabs 06/30/23 09/04/23 Rx amlodipine 5 mg tablet 5 mg PO QPM 09/04/23 09/04/23 History Patient History Medical History History of colon polyps Osteoarthritis GERD (gastroesophageal reflux disease) Macular degeneration Anxiety Asthma LAST USED RESCUE INHALER>BEEN YEARS Bipolar disorder Vitamin D insufficiency Hypertension Hyperlipidemia Allergic rhinitis, unspecified Surgical History History of colonoscopy 02/2021 Repeat 5 yrs History of tooth extraction History of cataract surgery RT/LEFT History of D&C Family History Daughter Breast cancer Mother , age 81 Graves disease Hypertension Stroke Father , age 81 Prostate cancer Dyslipidemia Heart disease Myocardial infarction Hypertension Grandfather (Maternal) Alcoholic cirrhosis Grandfather (Paternal) Heart disease Lung cancer Grandmother (Maternal) Ischemic stroke Other No family history of adverse response to anesthesia Denies family history of Ovarian cancer Diabetes Colorectal cancer Social History Smoking Status: Never smoker Second Hand Exposure: No; Do You Dip or Chew Tobacco: No; Hx Alcohol Use: No Hx Substance Use: No Preferred Language: Polish Communication Ability: Effective Visual Impairment: Limited Hearing Ability: Normal Bowling Alley Mechanic Required: No Beliefs That Will Affect Care: None marital status: Current Living Situation: Spouse Current Living Situation Comment: 1 dog current occupational status: employed current occupation: [employer], [employer], and [employer] How many Children do You have: 1 Other Information That Helps Us Care for You: No Feels Safe at Home: Yes Safety Concerns: Feels Safe At This Time Childhood Exposure to Second-Hand Smoke: Yes caffeine: Yes Dental Care, Regularly: Yes Physical Activity Frequency: Daily Seatbelt Use: always Sunscreen Use: Yes Assistive Devices: Glasses Review of Systems Constitutional: no fever, no fatigue and no weakness Eyes: no diplopia, no eye pain and no worsening vision Ear, Nose, Mouth, Throat: no ear pain, no tinnitus, no hearing loss, no dizzin ess, no snoring, no hoarseness and no dysphagia Respiratory: no cough and no dyspnea Cardiovascular: no chest pain, no palpitations and no lightheadedness Gastrointestinal: no abdominal pain, no nausea and no vomiting Genitourinary: no dysuria, no urinary frequency and no urinary incontinence Musculoskeletal: no back pain, no neck pain, no radicular pain, no joint pain and no myalgia Integumentary: no rash and no lesions Neurologic: no gait abnormality, no localized weakness, no generalized weakness, no tingling, no numbness, no tremor(s), no abnormal movements, no headache(s), no abnormal speech, no confusion and no memory loss Psychiatric: no depression, no irritability, no anxiety, no difficulty concentrating, no confusion and no hallucinations Endocrine: no fatigue and no flushing Hematologic / Lymphatic: no easy bleeding and no easy bruising Allergy / Immunological: no urticaria and no problem reported Exam (Neuro) Physical Exam: The patient is right-handed. The patient is awake, alert, and attentive. Speech is normal without any aphasia or dysarthria. The patient can name objects, repeat phrases, and has normal spontaneous speech. Mentation and thought processes are intact, with orientation to person, place and time, and normal fund of knowledge. Attention and concentration are normal. Mood and affect are normal and appropriate. General appearance and grooming are normal. Short and long-term memory are intact. Pupils are 4 mm bilaterally and reactive to light. Extraocular eye muscles are intact without nystagmus. Visual acuity and visual jay seem normal grossly to confrontation. There are no deficits to sensation in the face in all 3 distributions of the fifth cranial nerve bilaterally. Corneal reflexes are positive bilaterally. Facial strength and symmetry was normal bilaterally. Hearing seems normal bilaterally. Palate moves well without asymmetry. There is normal sternocleidomastoid and trapezius (shoulder shrug) strength bilaterally. Tongue is midline with good strength bilaterally. Neck has a full range of motion without discomfort. There are no cervical bruits bilaterally. There are no cranial or ocular bruits. Heart is without murmur. There is a regular rhythm and rate. Cervical, thoracic, and lumbar spine are nontender to palpation. Gait was not tested but stance sitting up is normal With outstretched arms there is no drift. There are no resting, postural, or action tremors. There is no ataxia with finger to nose testing. There is good facility in the hands. No other abnormal involuntary movements are noted. Motor strength is 5/5 diffusely in the arms bilaterally including deltoids, biceps, triceps, brachioradialis, wrist flexors and extensors, beater boss, and intrinsic hand muscles. Motor strength is 5/5 diffusely in the legs bilaterally including hip flexors, quadriceps, hamstrings, gastrocnemius, tibialis anterior, tibialis posterior, and Peroneii muscles. Toe extensors are normal and there is good bulk in the extensor digitorum brevis muscles bilaterally. The limbs have good tone without rigidity or spasticity. There is no atrophy noted in the muscles. Muscle bulk is normal, there is no tenderness to palpation, no myotonia to percussion, and no fasciculations seen. Sensory examination is intact to touch and pin throughout all 4 limbs diffusely. Reflexes are 2/4 in the biceps, triceps, brachioradialis, quadriceps, and Achilles tendons bilaterally. There is no clonus bilaterally. Toes are downgoing with plantar stimulation bilaterally. Peripheral pulses are present and of normal quality distally in all 4 limbs. There is no peripheral edema noted in the limbs. Results & Data Vital Signs (Past 12 Hours) Vital Signs Temp Pulse Pulse Pulse Resp BP BP 09/05/23 08:09 36.7 C 75 18 157/81 H 09/05/23 06:46 80 09/05/23 06:10 36.8 C 80 18 138/82 09/05/23 05:47 09/05/23 04:00 54 L 17 134/84 09/05/23 01:00 64 18 125/73 09/05/23 00:00 56 L 17 126/70 09/04/23 23:30 74 19 09/04/23 23:00 61 14 09/04/23 22:30 74 20 09/04/23 22:00 73 15 135/81 Pulse Ox O2 Del Method 09/05/23 08:09 90 Room Air 09/05/23 06:46 09/05/23 06:10 97 Room Air 09/05/23 05:47 Room Air 09/05/23 04:00 94 Room Air 09/05/23 01:00 96 Room Air 11/27/23 00:00 96 09/04/23 23:30 94 09/04/23 23:00 96 09/04/23 22:30 95 09/04/23 22:00 97 PG Care Time/CCT Total # of Minutes Spent Total Time Spent with Patient: Total time spent is greater than 50% in coordination of care (as documented) at patient's floor/unit and/or counseling patient: Coding Level of Care Code 03265 INT INP/OBS CARE 2/55MIN Diagnoses Transient vision disturbance of both eyes H53.9 Hypertension I10 Bipolar disorder F31.9 Time Spent (min) 60
--- NOTE | 2023-09-05 11:18 | Discharge Summary ---
Date of Service September 05, 2023 Admission HPI Per Admitting Provider Johanna is a 73-year-old female with PMH of GERD, hyperlipidemia, HTN, bipolar disorder, and arthritis. She presented for 15-minute episode of transient vision disturbance in both eyes at 1500 on 09/04. Patient was out hiking with her , friends, and dog when she developed an episode of bilateral visual changes which she described as "wavy vision, like rainbows"; kaleidoscope in nature. At first she thought she was having reflections from her glasses. Patient wears prescription glasses at baseline. Her last eye appointment was 1 month ago and she reported no issues at the time. When she was nearing ED discharge, she experienced another 5 to 10 minutes of visual changes. She denies eye pain. She reports that she took all of her morning medications as per usual. In regard to recent medication changes, she reports that she stopped taking lamotrigine at the beginning of July after agreeing with her PCP that her mood swings were well controlled; previously on it for 4 years. She is also not currently taking her statin. She endorses a hx of vertigo, but says that past vertigo episodes did not feel like this one; she does not take any medications for vertigo. Hx of cataract surgery in 2003, with no residual issues since. Patient states she was well-hydrated at the time of the episodes. She denies alcohol, tobacco, vaping, and recreational drug use. No prior episodes of transient visual changes such as this. Patient is mildly hypertensive at 159/98 at time of arrival; vitals otherwise stable. ED course: Aspirin 81 mg ROS: Patient endorses 2 episodes of transient visual disturbance, cold intolerance, changes to taste/smell, and numbness and tingling in the arms (which she attributes to knitting too much) Patient denies fever, headache, dizziness, lightheadedness, chills, fainting, ambulatory dysfunction, dysphagia, slurred speech, facial droop, recent head trauma, changes to hearing, loss of vision, ocular pain, photophobia, diplopia, difficulty swallowing, neck pain, chest pain, SOB, abdominal pain, N/V/D, burning with urination, blood in the urine or stool, dysuria, numbness or tingling going down the legs. No PMH of ME, CVA, DVT/PE, cancer, diabetes Admission Exam Per Admitting Provider General: no acute distress; pleasant affect; non-toxic appearing; well- nourished; cooperative HEENT: normocephalic, atraumatic; no scleral icterus; PERRLA w/ EOMs intact; moist mucus membrane; hearing grossly intact B/L assessed via finger rub test; patient demonstrates the ability to protrude and wiggle her tongue; patient demonstrates ability to smile, frown, and lift eyebrows; no facial droop Neck: supple; no JVD; no lymphadenopathy; trachea midline; no pain with shrugging/turning head against resistance Skin: warm, dry without signs of tenting; no cyanosis; no rashes, bruising, lesions, or erythema noted CV: chest wall NTP; RRR; S1/S2 normal; no murmurs/rubs/gallops; pulses intact and symmetric at radial, DP, and PT Lungs: no acute respiratory distress; symmetrical chest wall expansion; clear breath sounds across all lung jay w/o adventitious sounds; no wheezing ABD: Soft, NTP; BS present; no rebound/guarding; no ascites; no distention; no tick/rashes MSK: no tics or fasciculations; no edema noted in the LEs b/l; tableau analyst strength +5/5 B/L; full active ROM of UEs and LEs; +5/5 LE strength with plantarflexion, dorsiflexion, bending at the hips Neuro: A&Ox3; pleasant mood and affect; fluent speech, without slurring; CN2-12 intact; no focal deficits; sensation grossly intact in the face measured at 3 dermatomes, as well as the UEs / LEs bilaterally 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 Normal effort Abdomen: Soft/nontender/nondistended. No hepatosplenomegaly Extremities: No clubbing/cyanosis. No edema Behavior: Appropriate, cooperative Discharge Data Allergies Allergy/AdvReac Type Severity Reaction Status Date / Time atorvastatin Allergy Intermediate Confusion Verified 06/30/23 13:17 nickel Allergy Mild ITCHING Verified 06/30/23 13:17 Penicillins Allergy Mild RASH Verified 06/30/23 13:17 cyclobenzaprine AdvReac Mild EMOTION Verified 06/30/23 13:17 UPSET, CRYING W/O REASON rosuvastatin AdvReac Mild Confusion Verified 06/30/23 13:17 crestor AdvReac Mild Fatigued Uncoded 06/30/23 13:34 Consultations 09/04/23 19:43 ED Decision to Admit Stat 09/05/23 07:58 Consult Neurology Routine Ordered Studies 09/04/23 16:59 MR brain wo con Stat 09/04/23 19:23 CT angio head w con Stat CT angio neck with con Stat Hospital Course (1) Transient vision disturbance of both eyes: 2 episodes of transient b/l visual disturbances Episodes last 10 to 15 minutes, and she characterizes them as "wavy vision" like a kaleidoscope, or rainbow No slurred speech, facial droop, ocular pain, BYERS, dizziness, lightheadedness, ambulatory dysfunction, one-sided deficits No prior history of episodes like this one MRI brain revealed NAF CTA neck revealed no stenosis, occlusion, or dissection involving the bilateral carotid and vertebral arteries CT head revealed no stenosis, occlusion, or aneurysms in the [place] Last A1c 5.7% on 08/19/23 Patient passed dysphagia screen in the ED, and is okay to eat patient was seen in consultation by neurology. 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 These test results will need to be followed up on by her PCP. Patient will follow-up with PCP in 1 week. (2) Hyperlipidemia: Patient is no longer taking pravastatin Last lipid panel on 08/19/2023 revealed cholesterol 232, LDL 57, VLDL 21, HDL 54 No need to repeat lipid panel at this time (3) Hypertension: Hold amlodipine Continue lisinopril (4) Bipolar disorder: Patient reports she has not been taking her lamotrigine for the past month, after agreeing to discontinue it with her PCP Lamotrigine level pending (5) Chronic GERD: Continue omeprazole, or pantoprazole equivalent (6) Hypokalemia: Mild hypokalemia at 3.3 on arrival Potassium chloride 20mEq given in the ED Plan Disposition: Discharge to home today DNR/DNI Regular diet VTE PPx: TEDs Total Time Total Time Spent Total Time Spent (In Minutes): 35 Discharge Plan Discharge Items Patient Disposition: Home - Self-Care Reason For Visit: TWO EPISODES OF TRANSIENT VISUAL DISTURBANCE Discharge Diagnosis: 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 Condition on Discharge: Good Activity: Resume your previous activity Non-emergency contact: Primary Care Provider Call non-emergency contact if: you have any medication questions and your symptoms worsen Follow-up/Referrals: Tarik Benson DO [Primary Care Provider] - 09/12/23 11:30 am Diet: Heart Healthy Addtl Attending Provider Instructions: Advised to follow-up with PCP in 1 week Pending Studies at Discharge: Yes Studies:: ESR, TRAM, TSH, B12, Lyme antibody titer, TRAM Stand-Alone Forms: [facility] Medications and DC Order Prescriptions: Continued loratadine [Claritin] 10 mg tablet 10 mg PO DAILY Qty: 30 0RF Patient Comments: TAKES QAM Prilosec OTC 20 mg tablet,delayed release (DR/EC) 20 mg PO DAILY Qty: 30 2RF Patient Comments: TAKES QAM lisinopril 20 mg tablet 20 mg PO BID Qty: 180 3RF Patient Comments: TAKES QPM fluticasone propionate [Flonase Allergy Relief] 50 mcg/actuation spray,suspension 1 sprays INTNAS QAM cholecalciferol (vitamin D3) 50 mcg (2,000 unit) capsule 50 mcg PO QPM amlodipine 5 mg tablet 5 mg PO QPM Discharge Orders: Discharge Order (Routine); Ordered 09/05/23 Ordered By: Luke Baez Admission Data Admit Date/Time: 09/04/23 20:33 Attending Provider: Luke Baez Admit Provider: Navarro Henderson Primary Care Provider: Tarik Benson Other Providers: Navarro Henderson; Bg Geller Other Interventions: Discharge Summary Assessment (RN) Last Done: 09/05/23 11:51 Coding Level of Care Code 75165 INP/OBS DISCH >30 MIN Diagnoses Transient vision disturbance of both eyes H53.9 Hyperlipidemia E78.5 Hypertension I10 Bipolar disorder F31.9 Chronic GERD K21.9 Hypokalemia E87.6
[2023-09-05 11:45] LABS: Lyme Ab IgG w/WB Rflx Negative (Negative); Lyme Ab IgM w/WB Rflx Negative (Negative)
--- NOTE | 2023-09-05 17:41 | Electrocardiogram Report ---
Test Reason : Blood Pressure : / mmHG Vent. Rate : 086 BPM Atrial Rate : 086 BPM P-R Int : 180 ms QRS Dur : 072 ms QT Int : 338 ms P-R-T Axes : 046 -06 014 degrees QTc Int : 404 ms Normal sinus rhythm When compared with ECG of 22-SEP-2014 11:40, No significant change was found Confirmed by Virgilio Spencer ([id number]) on 09/05/2023 5:41:06 PM Referred By: REFERRED SELF Confirmed By:Jimy Spencer
--- NOTE | 2023-09-06 03:58 | Billing Data ---
Date of Service September 06, 2023 Coding Level of Care Code 92191 INT INP/OBS CARE
[2023-09-06 14:43] LABS: Anti Nuclear Antibody Screen POSITIVE (NEGATIVE)
[2023-09-07 08:40] LABS: ANA Titer > OR = 1:1280 titer
== END 2023-09-05 12:04 | disposition home or self-care (01) ==
LOC: EDINP 15:55 → ED 15:55 → SUATTDRO 20:33 → 2N 09-05 05:47